=== PATIENT | female | born 1945 | race Caucasian/White ===

== ENCOUNTER 2017-02-10 18:47 | Inpatient (IN) | payer MEDICARE, MEDICAID ==
[~2017-02-10] VITALS: Ht 157.5 cm; Wt 89.0 kg
[~2017-02-10 18:47] MED LIST: ACTOS15 MG PO; ADVAIR DISKUS 21 DSK INH; ALBUTEROL2.5 MG/0.5 INH; ANAPROX DS550 MG PO; ASPIRIN81 M1 PO; COREG6.25 MG PO; CYMBALTA60 MG PO; ENTERIC ASPIRI325 MG PO; GLYBURIDE2.5 MG PO; GLYBURIDE5 MG PO; LIPITOR20 MG PO; LISINOPRIL20 MG PO; MEDROL DOSEPAK4 MG PO; METFORMIN1000 MG PO; OMEPRAZOLE20 M1 PO; PREDNICOT20 MG PO; TESSALON PERLE200 MG PO; ULTRAM50 MG PO; VICTOZA6 MG/ML SC; ZITHROMAX Z PA250 MG PO; Zofran4 MG PO
[2017-02-10 18:52] VITALS: BP 175/89
[2017-02-10 19:30] VITALS: BP 172/68
[2017-02-10 19:31] LABS: BASO % 0.2 % (0.0-1.0); EOS # 0.2 10*3/uL (0.0-0.4); EOS % 1.3 % (1.0-4.0); HEMATOCRIT 44.8 % (37.0-47.0); HEMOGLOBIN 14.1 g/dl (12.0-16.0); LYMPH # 2.5 10*3/uL (1.3-4.4); LYMPH % 19.5 % (27.0-41.0); MEAN CELL VOLUME 93.3 fl (81.0-99.0); MEAN CORPUSCULAR HGB 29.4 pg (27.0-31.0); MEAN CORPUSCULAR HGB CONC 31.5 g/dl (33.0-37.0); MEAN PLATELET VOLUME 11.7 fl (9.6-12.3); MONO # 0.9 10*3/uL (0.1-1.0); MONO % 6.7 % (3.0-9.0); NEUT # 9.2 10*3/uL (2.3-7.9); NEUT % 72.1 % (47.0-73.0); PLATELET COUNT AUTOMATED 233 10*3/uL (130-400); RED CELL DISTRI WIDTH 13.1 % (0-14.5); WHITE BLOOD COUNT 12.8 10*3/uL (4.8-10.8)
[2017-02-10 19:40] LABS: INTERNATIONAL NORM RATIO 0.9 (2.0-3.5)
[2017-02-10 19:48] LABS: ALBUMIN 3.5 gm/dl (3.1-4.5); ALKALINE PHOSPHATASE 118 U/L (45-117); BUN 24 mg/dl (7-24); CHLORIDE 106 mmol/L (98-107); CREATININE 0.98 mg/dL (0.55-1.02); LIPASE 185 U/L (73-393); POTASSIUM 4.6 mmol/L (3.5-5.1); SGOT/AST 16 IU/L (3-35); SGPT/ALT 21 U/L (12-78); SODIUM 139 mmol/L (136-145); TOTAL PROTEIN 7.8 gm/dL (6.4-8.2); TROPONIN I 0.016 ng/ml (<0.045)
[2017-02-10 20:39] VITALS: BP 165/78
--- NOTE | 2017-02-10 20:42 | NUR ---
PATIENT SITTING UPRIGHT IN BED STATES SHE FEELS BETTER AFTER BREATHING TX, PATIENT STATES SHE IS COUGHING MORE NOW IS PRODUCTIVE LIGHT GREENISH IN COLOR
--- NOTE | 2017-02-10 20:52 | NUR ---
PATIENT PLACED ON PRTABLE O2 MONITOR AND WALKED AROUND ED DEPT, PULSE OX PRIMARILY 90-91% AND WENT LOW 89% ROOM AIR WHILE WALKING SLOW PACE
[2017-02-10 21:50] VITALS: BP 166/80
--- NOTE | 2017-02-10 21:50 | NUR ---
A 71, admitted to 4E, under the services of SHAYY Oakley DO with a diagnosis of COPD. Chief complaint is SHORTNESS OF BREATH. Patient arrived via stretcher from ER. Monitor applied. Initial assessment completed. Vital signs taken and recorded. SHAYY OAKLEY DO notified of admission to the unit. Orders received. See assessment for past medical history, medications and allergies. Patient and/or family oriented to unit. Clothing/patient valuable form completed. LEIGH ALVAREZ
[2017-02-10] MEDS ORDERED: METFORMIN1000 MG PO (23:03)
[2017-02-10] MEDS ORDERED: AMARYL4 MG PO (23:05)
[2017-02-10] MEDS ORDERED: Amaryl2 MG PO (23:06)
[2017-02-10] MEDS ORDERED: ADVAIR 250/501 EA INH (23:12)
[2017-02-10] MEDS ORDERED: TRULICITY1.5 MG/0.5 SC (23:13)
--- NOTE | 2017-02-10 23:15 | NUR ---
PATIENT MED REC UPDATED USING MED LIST PATIENT BROUGHT IN HOWEVER MEDICATIONS & DOSES MAY NEED VERIFIED WITH PHARMACY IN THE AM. PAPER LIST PLACED IN PATIENT'S CHART AT THIS TIME AND PATIENT STATES SHE USES [facility] IN [place].
[2017-02-11] VITALS: BP 182/78
--- NOTE | 2017-02-11 | NUR ---
DR. ROUSSEAU NOTIFIED THAT PT BP IS ELEVATED AT THIS TIME. HE ORDERS ONE TIME DOSE OF HYDRALAZINE IV PUSH. WILL GIVE MEDICATION AND FOLLOW UP WITH EFFECTIVENESS.
--- NOTE | 2017-02-11 00:08 | NUR ---
PHYSICIAN NOTIFIED THAT PT MED REC IS UP TO DATE TO THE BEST OF OUR ABILITY AT THIS TIME. TO NOTIFY DAYLIGHT NURSE TO CALL PT PHARMACY TOMORROW TO FURTHER VERIFICATION.
--- NOTE | 2017-02-11 01:10 | NUR ---
HYDRALAZINE EFFECTIVE AT THIS TIME. PT RESTING IN BED. IV SITE PATENT, DRESSING DRY AND IN TACT. NO COMPLAINTS VOICED. RESPIRATIONS EASY. ENCOURAGED USE OF CALL LIGHT.
--- NOTE | 2017-02-11 04:15 | NUR ---
PT NOT AWAKENED PER POLICY, RESPIRATIONS EASY AND UNLABORED. HR 90 ON CM. NO S/S OF PAIN OR DISTRESS. ALL SAFETY MEASURES IN PLACE.
--- NOTE | 2017-02-11 06:15 | NUR ---
PT SITTING UP IN BED, ALERT ORIENTED AND PLEASANT. AM MEDICATIONS TAKEN WITH EASE. BLOOD SUGAR OBTAINED AND COVERAGE GIVEN, TOLERATED WELL. PT UP TO BATHROOM, AMBULATING WELL. RESPIRATIONS EASY. NO S/S OF DISTRESS.
[2017-02-11 06:22] LABS: HEMATOCRIT 42.6 % (37.0-47.0); HEMOGLOBIN 13.6 g/dl (12.0-16.0); MEAN CELL VOLUME 92.2 fl (81.0-99.0); MEAN CORPUSCULAR HGB 29.4 pg (27.0-31.0); MEAN CORPUSCULAR HGB CONC 31.9 g/dl (33.0-37.0); MEAN PLATELET VOLUME 11.8 fl (9.6-12.3); PLATELET COUNT AUTOMATED 217 10*3/uL (130-400); RED BLOOD COUNT 4.62 10*6/uL (4.10-5.10); RED CELL DISTRI WIDTH 13.3 % (0-14.5)
[2017-02-11 06:54] LABS: BUN 17 mg/dl (7-24); CHLORIDE 107 mmol/L (98-107); CHOLESTEROL 129 mg/dL (<200); CREATININE 0.86 mg/dL (0.55-1.02); FREE T4 1.33 ng/dl (0.76-1.46); HDL CHOLESTEROL 51 mg/dl (40-60); LDL CHOLESTEROL 59 mg/dL (9-159); POTASSIUM 4.4 mmol/L (3.5-5.1); SODIUM 138 mmol/L (136-145); TRIGLYCERIDES 96 mg/dl (<150); VLDL CHOLESTEROL 19 mg/dL (6-40)
[2017-02-11 07:00] LABS: THYROID STIM HORMONE (HS) 0.769 uIU/ml (0.358-4.75)
[2017-02-11 07:10] LABS: TOTAL CELLS COUNTED 100 #CELLS
[2017-02-11 07:11] LABS: PLATELET SUFFICIENCY NORMAL (NORMAL)
[2017-02-11 08:00] VITALS: BP 148/76
[2017-02-11 08:48] LABS: VITAMIN D, 25-HYDROXY 12.3 ng/mL (30-100)
[2017-02-11 12:00] VITALS: BP 132/68
--- NOTE | 2017-02-11 13:58 | NUR ---
Financial Services Rep in to talk to patient. Patient states lives at home with alone. There are no steps in the home. Physician: [facility]acy: [facility] Home health services: no Patient's level of ADLs: INDEPENDENT Patient has working utilities: [employer] DME: Follow-up physician's appointment after d/c: will be made by hospitalist nurse director upon discharge Does patient want to access PORTAL?: no Discharge plan discussed with patient, patient lives at home alone, states she will be going back home when able and denies any home needs. PONCHO RAMIREZ
[2017-02-11 16:00] VITALS: BP 170/80
--- NOTE | 2017-02-11 17:18 | NUR ---
PT C/O HEADACHE, REQUESTED AND ADMINISTERED TYLENOL 650MG PO PRN PER ORDERS WILL MONITOR EFFECTS, CALL LIGHT WITH IN REACH
[2017-02-11 20:00] VITALS: BP 140/60
[2017-02-12] VITALS: BP 178/82
--- NOTE | 2017-02-12 00:45 | NUR ---
PATIENT MANUAL BLOOD PRESSURE 178/82 AT THIS TIME, NOTIFIED DR CEE AND RECEIVED ORDERS TO RECHECK BLOOD PRESSURE IN 30 MINUTES AND NOTIFY HIM AT THAT TIME.
--- NOTE | 2017-02-12 02:04 | NUR ---
PATIENT BLOOD PRESSURE CURRENTLY 162/64, NOTIFIED DR HOWARD AND NO FURTHER ORDERS RECEIVED AT THIS TIME. PATIENT RESTING IN BED WITH NO C/O'S CURRENTLY. WILL CONTINUE TO MONITOR. CALL LIGHT WITHIN REACH.
[2017-02-12 08:00] VITALS: BP 187/78
[2017-02-12] MEDS ORDERED: LEVAQUIN500 M2 PO (09:24)
[2017-02-12] MEDS ORDERED: PREDNISONE10 MG PO (09:24)
[2017-02-12] MEDS ORDERED: VITAMIN D-32000 UNIT PO (09:25)
[2017-02-12] MEDS ORDERED: B12,B-12,B 12500 MC1 PO (09:25)
[2017-02-12 10:14] LABS: BASO % 0.1 % (0.0-1.0); HEMATOCRIT 40.9 % (37.0-47.0); LYMPH # 1.7 10*3/uL (1.3-4.4); LYMPH % 10.5 % (27.0-41.0); MEAN CELL VOLUME 93.6 fl (81.0-99.0); MEAN CORPUSCULAR HGB 29.7 pg (27.0-31.0); MEAN CORPUSCULAR HGB CONC 31.8 g/dl (33.0-37.0); MEAN PLATELET VOLUME 11.5 fl (9.6-12.3); MONO # 0.6 10*3/uL (0.1-1.0); MONO % 3.8 % (3.0-9.0); NEUT # 13.5 10*3/uL (2.3-7.9); PLATELET COUNT AUTOMATED 257 10*3/uL (130-400); RED BLOOD COUNT 4.37 10*6/uL (4.10-5.10); RED CELL DISTRI WIDTH 13.1 % (0-14.5); WHITE BLOOD COUNT 15.8 10*3/uL (4.8-10.8)
[2017-02-12 10:35] LABS: ALBUMIN 3.2 gm/dl (3.1-4.5); CREATININE 1.23 mg/dL (0.55-1.02); POTASSIUM 4.3 mmol/L (3.5-5.1); TOTAL PROTEIN 7.3 gm/dL (6.4-8.2)
--- NOTE | 2017-02-12 10:54 | NUR ---
Discharge instructions reviewed with patient/family. Patient receptive and verbalizes understanding. Follow-up care arranged. Written instructions given to patient/family. VASHTI BRUCE
== END 2017-02-12 10:59 | disposition home or self-care (01) | DRG 872 ==
LOC: ED 18:47 → EDHOLD 21:16 → 4E 21:16
PROVIDERS: Family Medicine; Internal Medicine; Physician Assistant; ADMIT Internal Medicine
DX: A41.9 Sepsis, unspecified organism (principal); E11.22 Type 2 diabetes mellitus with diabetic chronic kidney disease; E11.40 Type 2 diabetes mellitus with diabetic neuropathy, unspecified; J44.1 Chronic obstructive pulmonary disease with (acute) exacerbation; F32.9 Major depressive disorder, single episode, unspecified; M94.0 Chondrocostal junction syndrome [Tietze]; I12.9 Hypertensive chronic kidney disease with stage 1 through stage 4 chronic kidney disease, or unspecified chronic kidney disease; F17.210 Nicotine dependence, cigarettes, uncomplicated; R09.02 Hypoxemia; E66.01 Morbid (severe) obesity due to excess calories; E78.5 Hyperlipidemia, unspecified; E53.8 Deficiency of other specified B group vitamins; E55.9 Vitamin D deficiency, unspecified; N18.3 Chronic kidney disease, stage 3 (moderate); Z88.0 Allergy status to penicillin; Z79.51 Long term (current) use of inhaled steroids; Z79.2 Long term (current) use of antibiotics; Z79.899 Other long term (current) drug therapy; Z80.49 Family history of malignant neoplasm of other genital organs; Z82.49 Family history of ischemic heart disease and other diseases of the circulatory system; Z79.84 Long term (current) use of oral hypoglycemic drugs; Z68.35 Body mass index [BMI] 35.0-35.9, adult; Z87.81 Personal history of (healed) traumatic fracture

== ENCOUNTER → 2020-02-26 | Outpatient (CLI) | payer MEDICARE, MEDICAID ==
[~2020-02-26] MED LIST changes: +ADVAIR 250/501 EA INH; +AMARYL4 MG PO; +Amaryl2 MG PO; +B12,B-12,B 12500 MC1 PO; +LEVAQUIN500 M2 PO; +PREDNISONE10 MG PO; +TRULICITY1.5 MG/0.5 SC; +VITAMIN D-32000 UNIT PO
[2020-02-26 12:11] LABS: ALBUMIN 3.8 gm/dl (3.1-4.5); CREATININE 1.19 mg/dL (0.55-1.02); POTASSIUM 4.7 mmol/L (3.5-5.1)
== END | disposition home or self-care (01) ==
LOC: LAB 11:29
PROVIDERS: ATTEND Internal Medicine Nephrology
DX: E78.5 Hyperlipidemia, unspecified (principal)

== ENCOUNTER 2020-12-06 21:22 | Emergency (ER) | payer MEDICARE, MEDICAID ==
[~2020-12-06] VITALS: Ht 162.5 cm; Wt 86.0 kg
== END 2020-12-07 00:52 ==
LOC: ED 21:25
DX: I46.9 Cardiac arrest, cause unspecified (principal); F17.200 Nicotine dependence, unspecified, uncomplicated; Z88.0 Allergy status to penicillin; Z79.899 Other long term (current) drug therapy